=== PATIENT | female | born 1935 | race Caucasian/White ===

== ENCOUNTER 2023-07-19 08:08 | Emergency (ER) | payer MEDICARE ==
[~2023-07-19] VITALS: Ht 157.5 cm; Wt 66.7 kg
[2023-07-19 08:08] VITALS: BP_SYST 134; PULSE 68; RESP 18; TEMP 98.2; O2SAT 97
[2023-07-19 09:41] LABS: BILIRUBIN,URINE NEGATIVE (NEGATIVE); BLOOD, URINE NEGATIVE (NEGATIVE); CLARITY/URINE CLEAR (CLEAR); COLOR,URINE YELLOW (YELLOW); GLUCOSE,URINE NEGATIVE (NEGATIVE); KETONES,URINE NEGATIVE (NEGATIVE); LEUKOCYTE ESTERASE ,URINE 1+ (NEGATIVE); NITRITE, URINE NEGATIVE (NEGATIVE); PROTEIN URINE NEGATIVE (NEGATIVE); UROBILINOGEN,URINE 0.2 (0.2-1.0)
[2023-07-19 09:42] LABS: BASOPHILS % (AUTO) 0.1 % (0.0-2.0); EOSINOPHILS % (AUTO) 0.1 % (0.0-4.0); HEMATOCRIT 36.1 % (36-48); HEMOGLOBIN 12.6 g/dL (12.0-16.0); LYMPHOCYTES # (AUTO) 0.7 K/uL (1.0-5.5); LYMPHOCYTES % (AUTO) 9.5 % (20.5-51.5); MEAN CORPUSCULAR HEMOGLOBIN 33 pg (27-31); MEAN CORPUSCULAR HGB CONC 35 % (32-36); MEAN CORPUSCULAR VOLUME 96 fL (79.0-98.0); MONOCYTES # (AUTO) 0.4 K/uL (0.0-1.0); MONOCYTES % (AUTO) 5.1 % (1.7-9.3); NEUTROPHILS # (AUTO) 6.4 K/uL (1.8-7.7); NEUTROPHILS % (AUTO) 85.2 % (40.0-70.0); PLATELET COUNT (AUTO) 245 K/uL (130-430); RED BLOOD CELL COUNT(AUTO) 3.77 MIL/uL (4.2-6.2); WHITE BLOOD COUNT (AUTO) 7.5 K/uL (4.8-10.8)
[2023-07-19 09:54] LABS: ANION GAP 7 (5-15); CALCIUM 9.4 mg/dL (8.4-11.0); CARBON DIOXIDE 28 mmol/L (23-29); CHLORIDE 101 mmol/L (98-107); CREATININE 0.82 mg/dL (0.55-1.30); GLUCOSE 114 mg/dL (74-106); POTASSIUM 4.3 mmol/L (3.5-5.1); SODIUM SERUM 136 mmol/L (136-145); UREA NITROGEN, BLOOD 11 mg/dL (8-21)
[2023-07-19 09:59] LABS: INR 1.1 (0.8-1.2); PROTHROMBIN TIME 10.9 SECS (9.5-12.5)
[2023-07-19 10:05] LABS: BACTERIA,URINE RARE /HPF (None Seen); RBC,URINE 0-3 /HPF (0-3)
[2023-07-19] MEDS: traMADol HCL HCL 50 MG TABLET (ULTRAM) PO ONE (10:43)
[2023-07-19] MEDS ORDERED: NITR-85 PO (10:58)
[2023-07-19 14:01] VITALS: BP_SYST 130; PULSE 87; RESP 23; TEMP 98.4; O2SAT 98
== END 2023-07-19 11:15 | disposition home or self-care (01) ==
LOC: SED 08:08
DX: S16.1XXA Strain of muscle, fascia and tendon at neck level, initial encounter (principal); S39.012A Strain of muscle, fascia and tendon of lower back, initial encounter; S09.90XA Unspecified injury of head, initial encounter; N39.0 Urinary tract infection, site not specified; Z79.899 Other long term (current) drug therapy; W08.XXXA Fall from other furniture, initial encounter; Y93.89 Activity, other specified; Y92.89 Other specified places as the place of occurrence of the external cause; Y99.8 Other external cause status
CPT/HCPCS: 36415; 70450-TC; 71045; 72125-TC; 72131; 73502; 76376; 80048; 81000; 81001; 81015; 83880; 84484; 85025; 85610; 85730; 87086; 93005; 99285

== ENCOUNTER 2023-07-21 09:46 | Inpatient (IN) | payer MEDICARE ==
[~2023-07-21] VITALS: Ht 165.1 cm; Wt 67.1 kg
[~2023-07-21 09:46] MED LIST: NITR-85 PO
[2023-07-21 09:50] VITALS: BP_SYST 128; PULSE 102; RESP 17; TEMP 98.2; O2SAT 94
[2023-07-21 10:17] LABS: BILIRUBIN,URINE NEGATIVE (NEGATIVE); BLOOD, URINE NEGATIVE (NEGATIVE); CLARITY/URINE CLEAR (CLEAR); COLOR,URINE YELLOW (YELLOW); GLUCOSE,URINE NEGATIVE (NEGATIVE); KETONES,URINE TRACE (NEGATIVE); LEUKOCYTE ESTERASE ,URINE NEGATIVE (NEGATIVE); NITRITE, URINE NEGATIVE (NEGATIVE); PROTEIN URINE TRACE (NEGATIVE); UROBILINOGEN,URINE 0.2 (0.2-1.0)
[2023-07-21 10:24] LABS: BASOPHILS % (AUTO) 0.1 % (0.0-2.0); EOSINOPHILS # (AUTO) 0.1 K/uL (0.0-0.4); HEMATOCRIT 39.7 % (36-48); HEMOGLOBIN 13.7 g/dL (12.0-16.0); LYMPHOCYTES % (AUTO) 15.3 % (20.5-51.5); MEAN CORPUSCULAR HEMOGLOBIN 34 pg (27-31); MEAN CORPUSCULAR HGB CONC 35 % (32-36); MEAN CORPUSCULAR VOLUME 97 fL (79.0-98.0); MONOCYTES # (AUTO) 0.4 K/uL (0.0-1.0); MONOCYTES % (AUTO) 6.3 % (1.7-9.3); NEUTROPHILS # (AUTO) 4.9 K/uL (1.8-7.7); NEUTROPHILS % (AUTO) 77.3 % (40.0-70.0); PLATELET COUNT (AUTO) 216 K/uL (130-430); RED BLOOD CELL COUNT(AUTO) 4.08 MIL/uL (4.2-6.2); RED CELL DISTRIBUTION WIDTH 11.9 % (9.0-15.0); WHITE BLOOD COUNT (AUTO) 6.3 K/uL (4.8-10.8)
[2023-07-21 10:36] LABS: ANION GAP 11 (5-15); CALCIUM 9.2 mg/dL (8.4-11.0); CARBON DIOXIDE 27 mmol/L (23-29); CHLORIDE 97 mmol/L (98-107); CREATININE 0.87 mg/dL (0.55-1.30); GLUCOSE 108 mg/dL (74-106); SODIUM SERUM 135 mmol/L (136-145); UREA NITROGEN, BLOOD 17 mg/dL (8-21)
[2023-07-21 10:40] LABS: PROTHROMBIN TIME 10.3 SECS (9.5-12.5)
[2023-07-21 10:43] LABS: ALANINE AMINOTRANSFERASE 39 U/L (12-78); ALBUMIN 2.9 g/dL (3.4-4.8); ASPARTATE AMINOTRANSFERASE 28 U/L (10-37); BILIRUBIN,DIRECT 0.2 mg/dL (0.0-0.3); TOTAL BILIRUBIN 0.7 mg/dL (0.0-1.0)
[2023-07-21] MEDS ORDERED: CLI.1P TD (11:28)
[2023-07-21] MEDS ORDERED: SER25 PO (11:28)
[2023-07-21] MEDS ORDERED: BISA-140 PO (11:28)
[2023-07-21] MEDS ORDERED: TRAM50TA2 PO (11:28)
[2023-07-21] MEDS ORDERED: OMEG100037 PO (11:28)
[2023-07-21] MEDS ORDERED: LYSI500T36 PO (11:28)
[2023-07-21] MEDS ORDERED: SENN8.6T19 PO ×2 (11:28)
[2023-07-21] MEDS ORDERED: PSYL0.4C2 PO (11:28)
[2023-07-21] MEDS ORDERED: VITD400 PO (11:28)
[2023-07-21] MEDS ORDERED: SERT-131 PO (11:28)
[2023-07-21] MEDS ORDERED: POLY17PO4 PO (11:28)
[2023-07-21] MEDS ORDERED: PRAV80TA20 PO (11:28)
[2023-07-21] MEDS ORDERED: APIX5TAB PO (11:28)
[2023-07-21] MEDS ORDERED: MIRA50TA PO (11:28)
[2023-07-21] MEDS ORDERED: HAL1 PO (11:28)
[2023-07-21] MEDS ORDERED: VITA1CAP PO (11:28)
[2023-07-21 11:41] LABS: COVID19 ANTIGEN SOFIA FIA NEGATIVE (NEGATIVE)
[2023-07-21 11:45] LABS: INFLUENZA TYPE A Negative (NEGATIVE); INFLUENZA TYPE B NEGATIVE (NEGATIVE)
[2023-07-21] MEDS ORDERED: LORazepam 2 MG/ML VIAL IVP PRN (15:30)
[2023-07-21] MEDS ORDERED: ACETAMINOPHEN 325 MG TABLET PO PRN (15:30)
[2023-07-21] MEDS ORDERED: ALBUTEROL SULFATE 0.083% 2.5 MG/3 ML VIAL.NEB INH PRN (15:30)
[2023-07-21] MEDS ORDERED: ONDANSETRON HCL 4 MG/2 ML VIAL IVP PRN (15:30)
[2023-07-21] MEDS: traMADol HCL HCL 50 MG TABLET (ULTRAM) PO ONE (15:40)
[2023-07-21] MEDS: METOPROLOL TARTRATE 25 MG TABLET PO ONE (18:17)
[2023-07-21 21:00] VITALS: BP_SYST 112; PULSE 70; RESP 22; TEMP 98.2; O2SAT 96
[2023-07-21] MEDS: ATORVASTATIN 10 MG TABLET PO SCH (21:00)
[2023-07-21 22:00] VITALS: O2SAT 96
[2023-07-21] MEDS: QUEtiapine FUMARATE 25 MG TABLET PO SCH (22:44)
[2023-07-21] MEDS: HALOPERIDOL 1 MG TABLET (HALDOL) PO SCH (22:44)
[2023-07-21] MEDS: METOPROLOL TARTRATE 25 MG TABLET PO SCH (22:48)
[2023-07-21] MEDS: APIXABAN 2.5 MG TABLET PO SCH (22:50)
[2023-07-22] VITALS: BP_SYST 134; PULSE 71; RESP 18; TEMP 97.5; O2SAT 96
[2023-07-22 05:41] VITALS: BP_SYST 134; PULSE 71; O2SAT 96
[2023-07-22 08:00] VITALS: O2SAT 96
[2023-07-22 08:17] VITALS: BP_SYST 117; PULSE 72; RESP 17; TEMP 98.4; O2SAT 92
[2023-07-22] MEDS ORDERED: ATENOLOL 50 MG TABLET (TENORMIN) PO SCH (09:00)
[2023-07-22] MEDS: SERTRALINE HCL 50 MG TABLET PO SCH (09:00)
[2023-07-22 11:13] LABS: BASOPHILS % (AUTO) 0.2 % (0.0-2.0); EOSINOPHILS # (AUTO) 0.1 K/uL (0.0-0.4); EOSINOPHILS % (AUTO) 1.5 % (0.0-4.0); HEMATOCRIT 34.3 % (36-48); HEMOGLOBIN 11.8 g/dL (12.0-16.0); LYMPHOCYTES # (AUTO) 1.2 K/uL (1.0-5.5); LYMPHOCYTES % (AUTO) 25.4 % (20.5-51.5); MEAN CORPUSCULAR HEMOGLOBIN 33 pg (27-31); MEAN CORPUSCULAR HGB CONC 35 % (32-36); MEAN CORPUSCULAR VOLUME 97 fL (79.0-98.0); MONOCYTES # (AUTO) 0.4 K/uL (0.0-1.0); MONOCYTES % (AUTO) 9.2 % (1.7-9.3); NEUTROPHILS # (AUTO) 3.1 K/uL (1.8-7.7); NEUTROPHILS % (AUTO) 63.7 % (40.0-70.0); PLATELET COUNT (AUTO) 224 K/uL (130-430); RED BLOOD CELL COUNT(AUTO) 3.55 MIL/uL (4.2-6.2); RED CELL DISTRIBUTION WIDTH 12.1 % (9.0-15.0); WHITE BLOOD COUNT (AUTO) 4.8 K/uL (4.8-10.8)
[2023-07-22] MEDS: PANTOPRAZOLE SODIUM 40 MG TAB PO ONE (11:15)
[2023-07-22] MEDS ORDERED: ESTR42.511 VG (11:30)
[2023-07-22] MEDS ORDERED: LYSI100013 PO (11:30)
[2023-07-22 11:32] LABS: ANION GAP 8 (5-15); CALCIUM 8.5 mg/dL (8.4-11.0); CARBON DIOXIDE 29 mmol/L (23-29); CHLORIDE 99 mmol/L (98-107); CREATINE KINASE, TOTAL 833 U/L (26-192); CREATININE 0.93 mg/dL (0.55-1.30); GLUCOSE 117 mg/dL (74-106); SODIUM SERUM 136 mmol/L (136-145); UREA NITROGEN, BLOOD 26 mg/dL (8-21)
[2023-07-22] MEDS ORDERED: VITA-285 PO (12:03)
[2023-07-22] MEDS ORDERED: BISO5TAB15 PO (12:03)
[2023-07-22] MEDS ORDERED: HALO0.5T PO (12:16)
[2023-07-22 12:45] LABS: CKMB RELATIVE INDEX 0.7 (0.0-2.9); CREATINE KINASE MB 6.1 ng/mL (0-3.6)
[2023-07-22] MEDS: NACL 0.9% 1,000 ML IV SCH (12:52)
[2023-07-22] MEDS: levETIRAcetam 1,000 MG IV BAG 100 ML IV ONE (13:12)
[2023-07-22 16:45] VITALS: BP_SYST 114; PULSE 72; RESP 16; TEMP 97
[2023-07-22 20:00] VITALS: BP_SYST 103; PULSE 76; RESP 18; TEMP 97.8; O2SAT 97
[2023-07-22] MEDS: levETIRAcetam 500 MG IV PREMIX 100 ML IV SCH (21:37)
[2023-07-23] VITALS (7 sets, daily range): BP systolic 95–141; PULSE 81–99; RESP 18–22; TEMP 95.4–98.1; O2SAT 93–98
[2023-07-23 05:15] LABS: BASOPHILS % (AUTO) 0.3 % (0.0-2.0); EOSINOPHILS # (AUTO) 0.1 K/uL (0.0-0.4); EOSINOPHILS % (AUTO) 2.8 % (0.0-4.0); HEMATOCRIT 35.2 % (36-48); HEMOGLOBIN 12.2 g/dL (12.0-16.0); LYMPHOCYTES # (AUTO) 1.3 K/uL (1.0-5.5); LYMPHOCYTES % (AUTO) 28.2 % (20.5-51.5); MEAN CORPUSCULAR HEMOGLOBIN 34 pg (27-31); MEAN CORPUSCULAR HGB CONC 35 % (32-36); MEAN CORPUSCULAR VOLUME 97 fL (79.0-98.0); MONOCYTES # (AUTO) 0.4 K/uL (0.0-1.0); MONOCYTES % (AUTO) 8.8 % (1.7-9.3); NEUTROPHILS # (AUTO) 2.7 K/uL (1.8-7.7); NEUTROPHILS % (AUTO) 59.9 % (40.0-70.0); PLATELET COUNT (AUTO) 226 K/uL (130-430); RED BLOOD CELL COUNT(AUTO) 3.65 MIL/uL (4.2-6.2); RED CELL DISTRIBUTION WIDTH 11.8 % (9.0-15.0); WHITE BLOOD COUNT (AUTO) 4.6 K/uL (4.8-10.8)
[2023-07-23 05:29] LABS: ANION GAP 11 (5-15); CALCIUM 8.5 mg/dL (8.4-11.0); CARBON DIOXIDE 24 mmol/L (23-29); CHLORIDE 102 mmol/L (98-107); CREATINE KINASE, TOTAL 631 U/L (26-192); CREATININE 0.72 mg/dL (0.55-1.30); GLUCOSE 91 mg/dL (74-106); POTASSIUM 3.8 mmol/L (3.5-5.1); SODIUM SERUM 137 mmol/L (136-145); UREA NITROGEN, BLOOD 21 mg/dL (8-21)
[2023-07-23 06:12] LABS: CKMB RELATIVE INDEX 0.4 (0.0-2.9); CREATINE KINASE MB 2.7 ng/mL (0-3.6)
[2023-07-23] MEDS: PANTOPRAZOLE SODIUM 40 MG TAB PO SCH (09:00)
[2023-07-23] MEDS ORDERED: LEVE250T2 PO (13:09)
[2023-07-23] MEDS: traMADol HCL HCL 50 MG TABLET (ULTRAM) PO PRN (17:48)
[2023-07-23] MEDS: DOCUSATE SODIUM 100 MG CAPSULE PO PRN (17:48)
[2023-07-24] VITALS: BP_SYST 114; PULSE 85; RESP 18; TEMP 97.5; O2SAT 98
[2023-07-24 08:01] VITALS: BP_SYST 135; PULSE 79; RESP 18; TEMP 97.7; O2SAT 94
[2023-07-24 10:07] VITALS: O2SAT 94
[2023-07-24 12:00] VITALS: BP_SYST 107; PULSE 65; RESP 16; TEMP 97.8; O2SAT 99
[2023-07-24 12:43] VITALS: BP_SYST 135; PULSE 79; RESP 18; TEMP 98.9; O2SAT 99
== END 2023-07-24 13:41 | disposition hospice, home (50) | DRG 565 ==
LOC: SED 09:46 → SMU 15:24
PROVIDERS: ADMIT Internal Medicine; ATTEND Internal Medicine
DX: T79.6XXA Traumatic ischemia of muscle, initial encounter (principal); G93.40 Encephalopathy, unspecified; R56.9 Unspecified convulsions; G30.9 Alzheimer's disease, unspecified; F02.80 Dementia in other diseases classified elsewhere, unspecified severity, without behavioral disturbance, psychotic disturbance, mood disturbance, and anxiety; I48.0 Paroxysmal atrial fibrillation; G89.29 Other chronic pain; Z20.822 Contact with and (suspected) exposure to COVID-19; X58.XXXA Exposure to other specified factors, initial encounter; Y93.89 Activity, other specified; Y92.89 Other specified places as the place of occurrence of the external cause; Y99.8 Other external cause status; Z88.5 Allergy status to narcotic agent; Z88.8 Allergy status to other drugs, medicaments and biological substances
CPT/HCPCS: 36415; 70450-TC; 71045; 72170-TC; 76376; 80048; 80076; 81001; 81003; 82140; 82550; 82553; 83605; 83880; 84484; 85025; 85610; 85730; 87040; 87086; 93005; 94760; 95816; 97116-GP; 97530-GP; 99285; J1953